=== PATIENT | female | born 1980 | race Caucasian/White ===

== ENCOUNTER 2025-04-30 08:50 | Emergency (ER) | payer BC, SELFPAY ==
[2025-04-30 09:06] VITALS: BP 116/72; PULSE 66; RESP 18; TEMP 36.6; O2SAT 100
--- NOTE | 2025-04-30 09:18 | ED.GENADUL_ITS ---
Discharge Plan Disposition Patient Disposition: Home Condition: Good Discharge Details Clinical Impression: Knee laceration Primary Care Provider: Farhana Saleem ED Provider: Marielena Montez Home Meds and New Rx's Prescriptions: Continued Glucosamine Complex-MSM 1 EACH capsule 2 cap PO DAILY Discharge Instructions Instructions: Laceration Repair With Stitches ED, Laceration Infection ED Additional Instructions: X-ray is reassuring, no retained foreign body was visualized on the x-ray or by myself. No evidence to suggest fracture or bony involvement. Your wound was closed with suture. Please keep the wound clean, dry, covered. Monitor wounds for signs of infection including redness, warmth, drainage, increased pain, fever/chills. If you develop these or other new/worsening symptom please care urgently once again. Please leave the current bandage on for the next 24 hours, after that you may remove and replace with a large Band-Aid with a dressing. Please continue with the knee immobilizer for the next 5 to 7 days to allow for better wound healing. Please return in 10 to 12 days for suture removal. If you develop any new or worsening symptoms before that however, please seek care urgently once again. Referrals: Farhana Saleem [Primary Care Provider, Medicine] Discharge Data Discharge Date/Time-TO BE ENTERED AT DEPARTURE: 04/30/25 11:45 HPI General Date/Time Provider Initiated Documentation: 04/30/25 09:18 . Limitations to Documentation: no limitations . Information obtained by: patient, family (mom) and RN notes reviewed . History of Present Illness 44 year old F presents to the emergency department with the chief complaint of left knee laceration, described as moderate, and is localized to the left and lower extremity. Patient reports no radiation. Patient started experiencing this minute(s) and it has been constant. Immobilization improves symptom(s), Movement worsens symptoms . Patient notes no other symptoms.. Patient did receive the following treatments prior to arrival, none Related Data Home Medications ?Medication ?Instructions ?Recorded ?Confirmed [id number]-ekv-zwezxyveu-vitC 2 cap PO DAILY 04/15/15 04/30/25 capsule (Glucosamine Complex-MSM capsule) Allergies Allergy/AdvReac Type Severity Reaction Status Date / Time No Known Allergies Allergy Unverified 04/30/25 11:43 General Stated Complaint: Laceration SAVITA: 4 Review of Systems Constitutional Constitutional: Reports as per HPI, Denies chills and Denies fever(s) Musculoskeletal Musculoskeletal: Reports as per HPI Integumentary/Breasts Skin/Breast: Reports as per HPI Neurologic Neurologic: Reports as per HPI, Denies sensory deficit and Denies paresthesias Exam Const General: cooperative, healthy appearing, comfortable, no acute distress, well developed and anxious Nutritional Appearance: average body habitus and well nourished Orientation: alert and awake Resp Effort & Inspection: normal respiratory effort, able to speak in complete sentences and no respiratory distress Cardio Rate: regular rate Rhythm: regular rhythm Skin Trauma: laceration Neuro General: patient alert and patient awake Cognition: normal cognition Speech: speech normal Sensory Exam: no sensory deficits noted Extrem Knee images: 2 1. Area of laceration. Sensation is intact. 2+ distal pulses. Full range of motion although pain elicited with full flexion. Patient is able to straight leg raise. No palpable defect in the patellar tendon. No visible foreign body or deep space involvement. Small amount of active bleeding. Course Vital Signs Vital signs: Vital Signs Temperature 36.6 C 04/30/25 09:06 Pulse 66 04/30/25 09:06 Respiratory Rate 18 04/30/25 09:06 Blood Pressure 116/72 04/30/25 09:06 Pulse Oximetry 100 04/30/25 09:06 Temperature 36.6 C 04/30/25 09:06 Temperature Source Oral 04/30/25 09:06 Pulse 66 04/30/25 09:06 Respiratory Rate 18 04/30/25 09:06 Blood Pressure 116/72 04/30/25 09:06 Pulse Oximetry 100 04/30/25 09:06 Oxygen Delivery Method Room Air 04/30/25 09:06 Oxygen Flow Rate 0 04/30/25 09:06 Pain Level 4 04/30/25 09:06 Procedure Laceration Laceration 1: Date of Procedure: 04/30/25 Provider that performed the procedure: Marielena Montez Site: lower extremity Side (If applicable): left Description: linear Depth: simple, single layer Local anesthetic: Lidocaine 1% and with Epi Amount of anesthesia used (mL): 8 Pre-repair:: wound explored, irrigated extensively and deep structures intact Skin layer closed with: nylon Suture size: 4-0 Number of sutures:: 6 Technique: simple, interrupted Subcutaneous layer closed with: vicryl Suture size: 4-0 Number of sutures:: 3 Medical Decision Making Patient's pleasant 44-year-old female, brought in with her mother, presenting with chief complaint of laceration to the left knee. She reports prior to arrival she was emptying a fish bowl into the toilet when she believes she knocked it and the glass broke causing a laceration across the anterior aspect of her knee, through her pants. She denies other injury at the time of the incident. No numbness or tingling. States that she did note large amount of bleeding but does not feel that there is any foreign body. She does believe that the laceration may be down to the bone. Reports that she is up-to-date on tetanus. On exam, patient appears anxious but otherwise nontoxic. Hemodynamically stable. She has about a 4 cm linear laceration on the anterior aspect of the patella. At this point, due to clotting it is difficult to evaluate the depth and involvement of the wound. However, given the mechanism as well as the patient's report I do feel it is appropriate to obtain an x-ray to further evaluate for any retained foreign body as well as bony involvement. After this been completed, will anesthetize the wound, cleaned it and closed. XR reviewed by myself and radiologist: IMPRESSION: Soft tissue laceration anterior to the patella. No radiopaque foreign body is present. Discussed the findings with the patient and her mom. We discussed risk/benefits as well as expected procedural steps associated with closure. They voiced understanding and wished to proceed. Please see procedure note. There is a perform using standard sterile technique. Wound was explored to base in a bloodless field no foreign body or debris appreciated. No deep structure involvement. Deep Vicryl were placed as well as simple interrupted skin sutures. Patient tolerated procedure well. The patient I discussed wound care in depth. Return precautions were discussed, in particular signs symptoms of infection. Patient will be placed in a knee immobilizer given the location to help prevent any excess force being placed on the sutures during the immediate healing time. We discussed supportive care to help with discomfort. Advised when to come back for wound reevaluation as well as suture removal. All of her questions and concerns were addressed and she is in agreement this plan. PFSH All Active Problems (Updated 04/30/25 @ 11:37 by IMER Norton) Knee laceration (Acute) Social History Smoking/Tobacco Use Status: Never Smoking risk assessment performed?: Yes Alcohol Intake: never Drug use: Never Substance use type: does not use
[2025-04-30] MEDS: Acetaminophen 500 MG TAB 1000 MG PO (09:35)
[2025-04-30] MEDS: Acetaminophen 325 MG TAB (09:40)
--- NOTE | 2025-04-30 10:10 | DI.RAD_ITS ---
Exam(s) XR KNEE LT 4V AP,LAT,SOUMYA,PAT EXAM: XR KNEE LT 4V AP,LAT,SOUMYA,PAT CLINICAL HISTORY: anterior laceration, ?FB, bone involvement. TECHNIQUE: 2D digital imaging was performed of the left knee. Four images were obtained. Merchant,AP, lateral and PA tunnel views were obtained. COMPARISON: No exams were available for comparison FINDINGS: BONES: No acute fracture is present. No bony destructive lesion is seen. JOINTS: The knee is normally aligned. No joint effusion is seen. No loose body. SOFT TISSUE: There is a laceration in the soft tissues anterior to the patella. No radiopaque foreign body is seen. IMPRESSION: Soft tissue laceration anterior to the patella. No radiopaque foreign body is present. DATA REPOSITORY: RADIATION DOSE DELIVERED:
== END 2025-04-30 11:45 | disposition home or self-care (01) ==
PROVIDERS: Emergency Provider Physician Assistant; PCP Nurse Practitioner Family
DX: S81.012A Laceration without foreign body, left knee, initial encounter (principal); W25.XXXA Contact with sharp glass, initial encounter; Y93.E9 Activity, other interior property and clothing maintenance; Y92.012 Bathroom of single-family (private) house as the place of occurrence of the external cause
CPT/HCPCS: 12002; 99283; 73564

== ENCOUNTER 2025-05-11 08:06 | Emergency (ER) | payer BC, SELFPAY ==
[2025-05-11 08:22] VITALS: BP 124/77; PULSE 62; RESP 15; TEMP 36.3; O2SAT 100
--- NOTE | 2025-05-11 08:53 | ED.GENADUL_ITS ---
Discharge Plan Disposition Patient Disposition: Home Discharge Details Clinical Impression: Healing wound Primary Care Provider: Farhana Saleem ED Provider: Mahi Crockett Home Meds and New Rx's Prescriptions: No Action Glucosamine Complex-MSM 1 EACH capsule 2 cap PO DAILY Discharge Instructions Additional Instructions: Your sutures were removed today. Please keep an eye out for signs of infection such as redness, pus, drainage, pain, or swelling. If you notice any of these, please seek care immediately Keep your wounds clean and dry. Wash daily with antibacterial soap and water. Do not apply any triple antibiotic ointment. Continue to cover with nonstick bandage and wear Jovon wrap to help protect with delicate skin. Wear sunscreen after it is fully healed to prevent scar Referrals: Farhana Saleem [Primary Care Provider, Medicine] Discharge Data Discharge Date/Time-TO BE ENTERED AT DEPARTURE: 05/11/25 09:15 HPI General Date/Time Provider Initiated Documentation: 05/11/25 08:47 . HPI Narrative: Shalonda is a 44-year-old female who presents to the emergency department today for suture removal. Sustained left knee injury from shattered fishbowl glass a week ago. 6 sutures placed. Has been using Jovon wrap to help support the knee. Denies pain, pus drainage, redness, bleeding, numbness, tingling, or swelling. Walking without difficulty. Related Data Home Medications ?Medication ?Instructions ?Recorded ?Confirmed dqhturwzgvu-xit-vkhvfjvfx-vitC 2 cap PO DAILY 04/15/15 04/30/25 capsule (Glucosamine Complex-MSM capsule) Allergies Allergy/AdvReac Type Severity Reaction Status Date / Time No Known Allergies Allergy Unverified 05/11/25 08:25 General Stated Complaint: SutureRem SAVITA: 4 Exam Narrative Exam Narrative: General Appearance: Normal. Vital signs: Within normal limits. Back, Musculoskeletal: Well-healing linear laceration noted to left knee, sutures intact. No erythema, swelling, exudate, or tenderness to the left knee. No distal numbness or swelling. Normal gait Skin: Warm and dry, no rash. Psychiatric: Normal. Course Vital Signs Vital signs: Vital Signs Temperature 36.3 C L 05/11/25 08:22 Pulse 62 05/11/25 08:22 Respiratory Rate 15 05/11/25 08:22 Blood Pressure 124/77 05/11/25 08:22 Pulse Oximetry 100 05/11/25 08:22 Temperature 36.3 C L 05/11/25 08:22 Temperature Source Tympanic 05/11/25 08:22 Pulse 62 05/11/25 08:22 Respiratory Rate 15 05/11/25 08:22 Blood Pressure 124/77 05/11/25 08:22 Blood Pressure Position Sitting 05/11/25 08:22 Pulse Oximetry 100 05/11/25 08:22 Oxygen Delivery Method Room Air 05/11/25 08:22 Oxygen Flow Rate 0 05/11/25 08:22 Pain Level 0 05/11/25 08:22 Medical Decision Making Initial Assessment: 44-year-old female presented for suture removal from knee injury. ED Course: - Removed 6 sutures from left knee - No erythema, swelling, exudate, or tenderness - Patient tolerated procedure well Final Assessment: Sutures removed without complications. No signs of infection. Clinical Impression: - Suture removal Disposition: - Discharge: Home, advised to monitor for infection signs such as redness and swelling. Patient Education: Advised to apply bacitracin or triple antibiotic ointment, keep area covered, use sunscreen after healed in 1-2 weeks. Apply ice if soreness occurs. Patient consented to the use of JOSE PFSH All Active Problems (Updated 05/11/25 @ 08:55 by Mahi Glaser) Healing wound (Acute) Knee laceration (Acute) Social History Smoking/Tobacco Use Status: Never Smoking risk assessment performed?: Yes Alcohol Intake: never Drug use: Never Substance use type: does not use Housing: house
== END 2025-05-11 09:15 | disposition home or self-care (01) ==
PROVIDERS: Emergency Provider Nurse Practitioner Family; PCP Nurse Practitioner Family
DX: Z48.02 Encounter for removal of sutures (principal)